=== PATIENT | female | born 1975 | race Two or more races ===

== ENCOUNTER 2023-11-18 11:32 | Inpatient (IN) | payer OTHER ==
[~2023-11-18] VITALS: Ht 157.5 cm; Wt 84.4 kg
[2023-11-18] MEDS: ONDANSETRON HCL 4 MG/2 ML VIAL IV ONE (12:17)
[2023-11-18] MEDS: PANTOPRAZOLE 40 MG/10 ML VIAL INJ IV ONE (12:17)
[2023-11-18 12:19] VITALS: PULSE 80; RESP 19; O2SAT 97
[2023-11-18 13:14] LABS: Basophils # (auto) 0 10 ^3/uL (0-0.2); Basophils % (auto) 0.2 % (0.0-2.0); Eosinophils # (auto) 0 10 ^3/uL (0-0.8); Eosinophils % (auto) 0.6 % (0.0-7.0); Hematocrit 42.4 % (36.0-46.0); Hemoglobin 14.2 g/dL (12.2-16.2); Lymphocytes # (auto) 1.6 10 ^3/uL (0.4-5.4); Lymphocytes % (auto) 22.7 % (10.0-50.0); Mean Corpuscular Hemoglobin 30.4 pg (28.0-32.0); Mean Corpuscular Hgb Conc. 33.4 g/dL (32.0-36.0); Mean Corpuscular Volume 91.1 fL (80.0-100.0); Monocytes # (auto) 0.7 10 ^3/uL (0-1.3); Monocytes % (auto) 9.3 % (0.0-12.0); Neutrophils # (auto) 4.8 10 ^3/uL (1.6-8.6); Neutrophils % (auto) 67.2 % (37.0-80.0); Red Blood Cells 4.65 10^6/uL (4.0-5.20); Red Cell Distribution Width 14.2 % (11.8-14.3); White Blood Cell 7.1 10^3/uL (4.4-10.8)
[2023-11-18 13:32] LABS: Alanine Aminotransferase 19 U/L (7-40); Albumin 4.1 g/dL (3.2-4.8); Alkaline Phosphatase 67 U/L (46-116); Anion Gap 4 (5-15); Aspartate Aminotransferase 12 U/L (13-40); BUN/Creatinine Ratio 22.4 (10.0-20.0); Bilirubin, Total 0.5 mg/dL (0.2-1.0); Blood Urea Nitrogen 15 mg/dL (9-23); Calcium 8.8 mg/dL (8.7-10.4); Carbon Dioxide 26 mmol/L (20-30); Chloride 108 mmol/L (98-107); Glucose 138 mg/dL (74-106); Lipase 46 U/L (12-53); Sodium 138 mmol/L (136-145); Total Protein 6.4 g/dL (5.7-8.2)
[2023-11-18 14:56] VITALS: PULSE 78; RESP 18; O2SAT 96
[2023-11-18] MEDS ORDERED: HYDROcodone-ACET 5/325MG TAB PO PRN (15:30)
[2023-11-18] MEDS ORDERED: ONDANSETRON HCL 4 MG/2 ML VIAL IV PRN (15:30)
[2023-11-18] MEDS ORDERED: DOCUSATE SOD 100 MG CAP PO PRN (15:30)
[2023-11-18] MEDS: LACTATED RINGER'S 1,000 ML IV ONE (17:45)
[2023-11-18 19:10] VITALS: PULSE 75; RESP 18; O2SAT 96
[2023-11-18] MEDS: SODIUM CHLOR 0.9% PF (SALINE LOCK) 10ML VIAL/SYR IV SCH (20:55)
[2023-11-19] MEDS: ACETAMINOPHEN 325 MG TAB PO PRN (02:25)
[2023-11-19 02:42] VITALS: PULSE 66; RESP 16; O2SAT 99
[2023-11-19 05:00] VITALS: BP 107/68; PULSE 66; RESP 16; TEMP 98.1; O2SAT 99
[2023-11-19 08:00] VITALS: PULSE 76; RESP 16; O2SAT 96
[2023-11-19 08:24] VITALS: BP 118/64; PULSE 76; RESP 16; TEMP 99; O2SAT 96
[2023-11-19] MEDS: ENOXAPARIN SOD 40 MG/0.4 ML SYRINGE SC SCH (09:45)
[2023-11-19] MEDS: PANTOPRAZOLE 40 MG/10 ML VIAL INJ IV SCH (09:45)
[2023-11-19 12:19] VITALS: BP 118/64; PULSE 76; RESP 16; TEMP 99; O2SAT 96
[2023-11-19 12:22] VITALS: BP 112/74; PULSE 74; RESP 16; TEMP 98.4; O2SAT 97
== END 2023-11-19 13:20 | disposition home or self-care (01) | DRG 74 ==
LOC: ER 11:32 → OVERFLOW 15:21 → CENTRAL 23:15 → OVERFLOW 11-19 01:01 → CENTRAL 11-19 02:35
PROVIDERS: ADMIT Internal Medicine; ATTEND Family Medicine
DX: G90.8 Other disorders of autonomic nervous system (principal); R10.13 Epigastric pain; Z79.899 Other long term (current) drug therapy
CPT/HCPCS: 36415; 76705; 80053; 83690; 84484; 85025; 93005; 96361; 96374; 96375; G0378; J2405; J2470